=== PATIENT | male | born 1995 | race Caucasian/White ===

== ENCOUNTER 2019-05-12 12:08 | Emergency (ER) | payer OTHER ==
[2019-05-12 13:02] LABS: ABS Eosinophils 0.1 10^3/ul (0-0.6); ABS Lymphocytes 1.7 10^3/ul (1.0-4.8); ABS Monocytes 0.6 10^3/ul (0-0.8); ABS Neutrophils 7.6 10^3/ul (1.5-7.7); Eosinophil % 0.7 %; Hematocrit 43 % (42-52); Hemoglobin 14.5 g/dL (14.0-18.0); Lymphocyte % 16.9 %; Mean Corpuscular HGB Conc 34 g/dL (31-36); Mean Corpuscular Hemoglobin 30 pg (27-31); Mean Corpuscular Volume 88 fL (80-94); Mean Platelet Volume 8.8 fL (7.4-10.4); Platelet Count 254 10^3/uL (150-450); Red Blood Count 4.86 10^6 /uL (4.18-5.48); Red Cell Distribution Width 14 % (10-15); White Blood Count 10.1 10^3/uL (3.5-10.8)
[2019-05-12 13:09] LABS: ALT 26 U/L (7-52); AST 22 U/L (13-39); Albumin 4.5 g/dL (3.2-5.2); Albumin/Globulin Ratio 1.3 (1-3); Alkaline Phosphatase 123 U/L (34-104); Anion Gap 5 mmol/L (2-11); BUN/Creatinine Ratio 9.2 (8-20); Blood Urea Nitrogen 9 mg/dL (6-24); CO2 Carbon Dioxide 31 mmol/L (22-32); Calcium 9.8 mg/dL (8.6-10.3); Chloride 101 mmol/L (101-111); EGFR African American 115.7 (>60); EGFR Non-African American 95.6 (>60); Globulin 3.5 g/dL (2-4); Glucose 102 mg/dL (70-100); Potassium 4.2 mmol/L (3.5-5.0); Sodium 137 mmol/L (135-145)
--- NOTE | 2019-05-12 13:27 | ED ---
Complex/Multi-Sys Presentation - HPI Summary HPI Summary: Pt. is a 23 y.o male who presents to the ER for concern for change in behavior, difficulty finding words and confusion. Patient is a history of schizophrenia and currently is on Lamictal, Minipress, and Seroquel. He follows with the psychiatrist monthly. Patient states that he was concerned he may be having a seizure or stroke today. Patient states this morning he felt shaky and went to his father and told him he may be having a stroke or a seizure. Patient's mother states he was shaking his arms but never lost consciousness. Patient's mother has a history of seizures status post brain injury. Patient denies drug or alcohol use. Patient's father states patient has been acting bizarre over the last 2 weeks. Father notes he will be reaching and looking at things that are not there. Patient denies SI or HI. Symptoms are moderate in severity. No current modifying factors. - History Of Current Complaint Chief Complaint: EDNeurologicalDeficit Time Seen by Provider: 05/12/19 13:05 Hx Obtained From: Patient, Family/Camp[facility] - Allergies/Home Medications Allergies/Adverse Reactions: Allergies Allergy/AdvReac Type Severity Reaction Status Date / Time bee venom protein (honey bee) Allergy Anaphylatic Verified 05/12/19 12:24 Shock Penicillins Allergy Unknown Verified 05/12/19 12:25 Reaction Details Home Medications: Home Medications Lamotrigine ER (NF) 200 mg PO DAILY 05/12/19 [History Confirmed 05/12/19] Prazosin 1 mg CAP [Minipress 1 mg CAP] 2 mg PO BEDTIME 05/12/19 [History Confirmed 05/12/19] QUEtiapine TAB* [Seroquel 100 MG *] 200 mg PO BEDTIME 05/12/19 [History Confirmed 05/12/19] PMH/Surg Hx/FS Hx/Imm Hx Previously Healthy: Yes Infectious Disease History: No Infectious Disease History: Denies: Traveled Outside the [place] in Last 30 Days - Family History Known Family History: Positive: Non-Contributory - Social History Occupation: Unemployed Lives: With Family Review of Systems - ROS Summary Review of Systems Summary: Lamotrigine ER (NF) 200 mg PO DAILY 05/12/19 [History Confirmed 05/12/19] Prazosin 1 mg CAP [Minipress 1 mg CAP] 2 mg PO BEDTIME 05/12/19 [History Confirmed 05/12/19] QUEtiapine TAB* [Seroquel 100 MG *] 200 mg PO BEDTIME 05/12/19 [History Confirmed 05/12/19] Constitutional: Negative Negative: Fever, Chills Eyes: Negative ENT: Negative Cardiovascular: Negative Respiratory: Negative Gastrointestinal: Negative Genitourinary: Negative Musculoskeletal: Negative Skin: Negative Neurological/Mental Status: Other - Questionable seizure like activity, difficulty finding words,confused. All Other Systems Reviewed And Are Negative: Yes Physical Exam Triage Information Reviewed: Yes Vital Signs On Initial Exam: Initial Vitals Temp Pulse Resp BP Pulse Ox 97.7 F 91 20 134/81 97 05/12/19 12:14 05/12/19 12:14 05/12/19 12:14 05/12/19 12:14 05/12/19 12:14 Vital Signs Reviewed: Yes Appearance: Positive: Well-Appearing - Pt. sitting up in bed in NAD. Awake, alert and O x 3. Father present. Answers questions appropriately. Skin: Positive: Warm, Dry Head/Face: Positive: Normal Head/Face Inspection Eyes: Positive: Normal, EOMI ENT: Positive: Pharynx normal, TMs normal Neck: Positive: Supple Respiratory/Lung Sounds: Positive: Clear to Auscultation, Breath Sounds Present Cardiovascular: Positive: Normal, RRR Musculoskeletal: Positive: Normal, Strength/ROM Intact Neurological: Positive: Normal, Alert, Oriented to Person Place, Time, CN Intact II-III, Speech Normal - Slow responses occassionaly. Negative: Disoriented, Slurred Speech, Dysphagia, Pronator Drift Present Psychiatric: Positive: Affect/Mood Appropriate - Leon Coma Scale Best Eye Response: 4 - Spontaneous Best Motor Response: 6 - Obeys Commands Best Verbal Response: 5 - Oriented Coma Scale Total: 15 Procedures - Sedation Patient Received Moderate/Deep Sedation with Procedure: No Diagnostics - Vital Signs Vital Signs Temp Pulse Resp BP Pulse Ox 05/12/19 12:14 97.7 F 91 20 134/81 97 - Laboratory Lab Results: Lab Results 05/12/19 05/12/19 Range/Units 12:38 12:38 WBC 10.1 (3.5-10.8) 10^3/uL RBC 4.86 (4.18-5.48) 10^6 /uL Hgb 14.5 (14.0-18.0) g/dL Hct 43 (42-52) % MCV 88 (80-94) fL MCH 30 (27-31) pg MCHC 34 (31-36) g/dL RDW 14 (10-15) % Plt Count 254 (150-450) 10^3/uL MPV 8.8 (7.4-10.4) fL Neut % (Auto) 75.6 % Lymph % (Auto) 16.9 % Bertie % (Auto) 6.4 % Eos % (Auto) 0.7 % Baso % (Auto) 0.4 % Absolute Neuts (auto) 7.6 (1.5-7.7) 10^3/ul Absolute Lymphs (auto) 1.7 (1.0-4.8) 10^3/ul Absolute Monos (auto) 0.6 (0-0.8) 10^3/ul Absolute Eos (auto) 0.1 (0-0.6) 10^3/ul Absolute Basos (auto) 0.0 (0-0.2) 10^3/ul Absolute Nucleated RBC 0.0 10^3/ul Nucleated RBC % 0.0 Sodium 137 (135-145) mmol/L Potassium 4.2 (3.5-5.0) mmol/L Chloride 101 (101-111) mmol/L Carbon Dioxide 31 (22-32) mmol/L Anion Gap 5 (2-11) mmol/L BUN 9 (6-24) mg/dL Creatinine 0.98 (0.67-1.17) mg/dL Est GFR ( Amer) 115.7 (>60) Est GFR (Non-Af Amer) 95.6 (>60) BUN/Creatinine Ratio 9.2 (8-20) Glucose 102 H (70-100) mg/dL Calcium 9.8 (8.6-10.3) mg/dL Total Bilirubin 1.00 (0.2-1.0) mg/dL AST 22 (13-39) U/L ALT 26 (7-52) U/L Alkaline Phosphatase 123 H (34-104) U/L Total Protein 8.0 (6.4-8.9) g/dL Albumin 4.5 (3.2-5.2) g/dL Globulin 3.5 (2-4) g/dL Albumin/Globulin Ratio 1.3 (1-3) TSH Pending Serum Alcohol Pending Result Diagrams: 05/12/19 12:38 05/12/19 12:38 Lab Statement: Any lab studies that have been ordered have been reviewed, and results considered in the medical decision making process. Complex Multi-Symp Course/Dx Course Of Treatment: Patient with slow response and trouble finding words. He has no neurological deficits. Brain CT obtained to rule out signs of ischemia or mass. Brain CT negative per radiology. Blood work unremarkable. We'll obtain mental health evaluation. Pt. moved to [facility] for [facility]. Pt. will be signed out to BHAKTI Pope for disposition. - Diagnoses Provider Diagnoses: Schizophrenia Discharge ED - Sign-Out/Discharge Documenting (check all that apply): Sign-Out Patient Signing out patient TO: Сергей Ellis - Discharge Plan Referrals: Josh Davila DO [Primary Care Provider] -
[2019-05-12 13:45] LABS: Alcohol < 10 mg/dL (<10)
[2019-05-12 14:00] LABS: TSH (Thyroid Stimulating Horm) 1.32 mcIU/mL (0.34-5.60)
--- NOTE | 2019-05-12 17:29 | ED ---
Progress - Progress Note Progress Note: Pt. is a 23 y.o male who presents to the ER for concern for change in behavior, difficulty finding words and confusion. Patient is a history of schizophrenia and currently is on Lamictal, Minipress, and Seroquel. He follows with the psychiatrist monthly. Patient states that he was concerned he may be having a seizure or stroke today. Patient states this morning he felt shaky and went to his father and told him he may be having a stroke or a seizure. Patient's mother states he was shaking his arms but never lost consciousness. Patient's mother has a history of seizures status post brain injury. Patient denies drug or alcohol use. Patient's father states patient has been acting bizarre over the last 2 weeks. Father notes he will be reaching and looking at things that are not there. Patient denies SI or HI. Symptoms are moderate in severity. No current modifying factors. Pt signed out to me from Landon Herzog at 1730. Psychiatry believed patient was fit for discharge with outpatient follow-up. Patient diagnosed with bipolar disorder, schizophrenia, psychosis. Patient discharged home, condition stable Course/Dx - Course Course Of Treatment: Patient with slow response and trouble finding words. He has no neurological deficits. Brain CT obtained to rule out signs of ischemia or mass. Brain CT negative per radiology. Blood work unremarkable. We'll obtain mental health evaluation. - Diagnoses Provider Diagnoses: Schizophrenia Discharge ED - Sign-Out/Discharge Documenting (check all that apply): Patient Departure - Discharge Plan Condition: Stable Disposition: HOME Patient Education Materials: Bipolar Disorder (ED), Schizophrenia (ED), Psychotic Disorder (ED) Referrals: Josh Davila DO [Primary Care Provider] - - Billing Disposition and Condition Condition: STABLE Disposition: Home
[2019-05-12 18:01] VITALS: BP 126/76
== END 2019-05-12 18:13 | disposition home or self-care (01) ==
LOC: ED 12:08
DX: F20.9 Schizophrenia, unspecified (principal); Z79.899 Other long term (current) drug therapy; Z88.0 Allergy status to penicillin
CPT/HCPCS: 36415; 70450; 80053; 80320; 84443; 85025; 99284; G0480

== ENCOUNTER 2019-06-17 10:09 | Inpatient (IN) | payer OTHER ==
[2019-06-17 10:45] LABS: ABS Eosinophils 0.1 10^3/ul (0-0.6); ABS Lymphocytes 1.6 10^3/ul (1.0-4.8); ABS Monocytes 0.6 10^3/ul (0-0.8); ABS Neutrophils 8.6 10^3/ul (1.5-7.7); Eosinophil % 0.7 %; Hematocrit 44 % (42-52); Hemoglobin 14.7 g/dL (14.0-18.0); Lymphocyte % 14.3 %; Mean Corpuscular HGB Conc 34 g/dL (31-36); Mean Corpuscular Hemoglobin 30 pg (27-31); Mean Corpuscular Volume 87 fL (80-94); Mean Platelet Volume 8.8 fL (7.4-10.4); Platelet Count 257 10^3/uL (150-450); Red Blood Count 4.98 10^6 /uL (4.18-5.48); Red Cell Distribution Width 14 % (10-15); White Blood Count 10.9 10^3/uL (3.5-10.8)
[2019-06-17 11:01] LABS: ALT 16 U/L (7-52); AST 16 U/L (13-39); Albumin/Globulin Ratio 1.3 (1-3); Alkaline Phosphatase 130 U/L (34-104); Anion Gap 3 mmol/L (2-11); BUN/Creatinine Ratio 9.1 (8-20); Blood Urea Nitrogen 9 mg/dL (6-24); CO2 Carbon Dioxide 34 mmol/L (22-32); Calcium 9.8 mg/dL (8.6-10.3); Chloride 100 mmol/L (101-111); EGFR African American 114.4 (>60); EGFR Non-African American 94.5 (>60); Globulin 3.1 g/dL (2-4); Glucose 102 mg/dL (70-100); Potassium 3.9 mmol/L (3.5-5.0); Sodium 137 mmol/L (135-145); Total Protein 7.1 g/dL (6.4-8.9)
--- NOTE | 2019-06-17 11:02 | ED ---
Substance Abuse/Use - HPI Summary HPI Summary: This patient is a 23-year-old male with a history of schizophrenia presenting to the ED for change in behavior per father. Patient has been confused, not speaking and not responding to questions, etc per father since after he took his 100mg dose of seroquel this AM. He does see a psychiatrist every month. Her his father, he has been acting out more frequently similar to his diagnosis of schizophrenia in 2014. Patient was seen in the ED approximately 5 weeks ago for similar symptoms. He had difficulty finding words and confusion. He did have a change in his behavior per his father and would stop speaking at times. He has been acting bizarrely over the past several months, however this has been worsening. Denies any SI or HI. Lamictal, Minipress, and Seroquel. - History Of Current Complaint Chief Complaint: EDPsychosocial Stated Complaint: MENTAL HEALTH Time Seen by Provider: 06/17/19 10:13 Hx Obtained From: Patient Ingestion History: Type/Name Of Drug - seroquil Overdose Characteristics: Oral Timing Of Abuse: Daily Severity Initially: Moderate Severity Currently: Moderate Aggravating Factor(s): Nothing Alleviating Factor(s): Nothing Associated Signs And Symptoms: Confused, Hallucinating, Social Withdrawal, Altered Mental Status - Risk Factor(s) Completed Suicide Risk Factors: Male, White [place] - Allergies/Home Medications Allergies/Adverse Reactions: Allergies Allergy/AdvReac Type Severity Reaction Status Date / Time bee venom protein (honey bee) Allergy Anaphylatic Verified 05/12/19 12:24 Shock Penicillins Allergy Unknown Verified 05/12/19 12:25 Reaction Details Home Medications: Home Medications Lamotrigine ER (NF) 200 mg PO DAILY 05/12/19 [History Confirmed 06/17/19] Prazosin 1 mg CAP [Minipress 1 mg CAP] 2 mg PO BEDTIME 05/12/19 [History Confirmed 06/17/19] QUEtiapine TAB* [Seroquel 100 MG *] 200 mg PO BEDTIME 05/12/19 [History Confirmed 06/17/19] Quetiapine Fumarate [Seroquel 50 mg tab] 50 mg PO .Q AFTERNOON 06/17/19 [ History Confirmed 06/17/19] PMH/Surg Hx/FS Hx/Imm Hx Previously Healthy: Yes Psychiatric History: Reports: Hx Eating Disorder, Hx Depression, Hx Post Traumatic Stress Disorder, Hx Schizophrenia, Hx Bipolar Disorder Denies: Hx Suicide Attempt - Immunization History Hx Pertussis Vaccination: No Immunizations Up to Date: Yes Infectious Disease History: Unable to Obtain/Confirm Infectious Disease History: Denies: Traveled Outside the [place] in Last 30 Days - Family History Known Family History: Positive: Non-Contributory - Social History Occupation: Unemployed Lives: With Family Alcohol Use: None Hx Substance Use: No Substance Use Type: Reports: None Hx Tobacco Use: No Smoking Status (MU): Never Smoked Tobacco Review of Systems - ROS Summary Review of Systems Summary: HPI limited Negative: Fever, Chills, Fatigue, Skin Diaphoresis Negative: Palpitations, Chest Pain Negative: Shortness Of Breath, Cough Genitourinary: Negative Positive: no symptoms reported, see HPI Negative: Arthralgia, Myalgia Skin: Negative Neurological/Mental Status: Negative Positive: Other - altered All Other Systems Reviewed And Are Negative: Yes Physical Exam Triage Information Reviewed: Yes Vital Signs On Initial Exam: Initial Vitals Temp Pulse Resp BP Pulse Ox 98.9 F 90 16 146/99 97 06/17/19 10:14 06/17/19 10:14 06/17/19 10:14 06/17/19 10:14 06/17/19 10:14 Vital Signs Reviewed: Yes Appearance: Positive: Well-Appearing, Well-Nourished Skin: Positive: Warm, Skin Color Reflects Adequate Perfusion Head/Face: Positive: Normal Head/Face Inspection Eyes: Positive: EOMI, THAIS, Conjunctiva Clear Neck: Positive: Supple, No Lymphadenopathy Respiratory/Lung Sounds: Positive: Clear to Auscultation, Breath Sounds Present Cardiovascular: Positive: RRR, Pulses are Symmetrical in both Upper and Lower Extremities Musculoskeletal: Positive: Normal, Strength/ROM Intact Neurological: Positive: Disoriented, Facial Symmetry. Negative: Alert, Oriented to Person Place, Time, CN Intact II-III, Cerebellar Dysfunction, Facial Droop Psychiatric: Positive: Affect/Mood Appropriate AVPU Assessment: Alert Procedures - Sedation Patient Received Moderate/Deep Sedation with Procedure: No Diagnostics - Vital Signs Vital Signs Temp Pulse Resp BP Pulse Ox 06/17/19 10:14 98.9 F 90 16 146/99 97 - Laboratory Result Diagrams: 06/17/19 10:30 06/17/19 10:30 Lab Statement: Any lab studies that have been ordered have been reviewed, and results considered in the medical decision making process. Course/Dx - Course Course Of Treatment: During his course of treatment, the patient is evaluated for bizarre behavior which has been worsening over the past few days, worse this morning per father. Patient had an evaluation last month and was discharged back home. He states he took 100 mg Seroquel as this was just increased and per his father, he began to have more bizarre behavior. Father states he feels this medication increase could be the issue. Arrival into the ED, the patient is mumbling, appears to have difficulty with word finding, staring off into the distance, EDC. Poison control was called, suggested 25 mg IV Benadryl. Mental health evaluation requested. Will admit for schizophrenia per Dr. Michaels. - Diagnoses Differential Diagnosis/HQI/PQRI: Positive: Acute Psychosis, Anxiety Provider Diagnoses: Schizophrenia Discharge ED - Sign-Out/Discharge Documenting (check all that apply): Patient Departure - Discharge Plan Condition: Good Disposition: ADMITTED TO [facility] - Billing Disposition and Condition Condition: GOOD Disposition: Admitted to [facility] - Attestation Statements Provider Attestation: I was available for consult. This patient was seen by the KAREEM. The patient was not presented to, seen by, or examined by me. Art Esquivel MD
[2019-06-17 11:10] LABS: Acetaminophen < 15 mcg/mL; Alcohol < 10 mg/dL (<10); Salicylate < 2.50 mg/dL (<30)
[2019-06-17] MEDS ORDERED: diPHENhydraMINE IV* 50 MG/ML 1 ml VIAL (BENADRYL) IV ONE (11:28)
[2019-06-17 12:33] LABS: Urine Appearance Turbid; Urine Bilirubin Negative (Negative); Urine Blood Negative (Negative); Urine Color Yellow; Urine Glucose Negative (Negative); Urine Ketones Negative (Negative); Urine Nitrite Negative (Negative); Urine Protein Negative (Negative); Urine Specific Gravity 1.009 (1.010-1.030); Urine Urobilinogen Negative (Negative)
[2019-06-17 12:49] LABS: Urine Benzodiazepine Screen None Detected (None Detect); Urine Opiates Screen None Detected (None Detect)
[2019-06-17] MEDS ORDERED: Al Hydrox/Mg Hydrox/Simet LIQ* 30 ML UDC PO PRN (18:22)
[2019-06-17] MEDS ORDERED: QUEtiapine TAB* 100 MG PO SCH (21:00)
[2019-06-18] MEDS: lamoTRIgine TAB(*) 100 MG PO SCH ×2 (13:24→13:41)
[2019-06-18] MEDS: Vitamin THERAPEUTIC TAB PO SCH ×2 (13:24→13:42)
[2019-06-18] MEDS: QUEtiapine TAB* 25 MG PO SCH ×2 (13:25→13:42)
[2019-06-18] MEDS: LORazepam TAB(*) 1 MG PO ONE ×2 (13:25→13:41)
[2019-06-18] MEDS ORDERED: Lorazepam PYXIS KEY PRN (13:38)
[2019-06-18] MEDS ORDERED: LORazepam INJ* 2 MG/ML 1 ML VIAL IM ONE (13:38)
[2019-06-18] MEDS ORDERED: Lorazepam PYXIS KEY ONE (13:40)
[2019-06-18] MEDS ORDERED: LORazepam INJ* 2 MG/ML 1 ML VIAL ONE (13:41)
--- NOTE | 2019-06-18 17:52 | HP ---
HISTORY AND PHYSICAL: DATE OF ADMISSION: 06/17/19 PROVIDER: Brunilda Yañez NP, Psychiatry. SUPERVISING PHYSICIAN: John Michaels MD.* (DICTATED BY BRUNILDA YAÑEZ NP) JUSTIFICATION FOR ADMISSION: The patient is in need of 24-hour supervision and care secondary to gross disorganization. CHIEF COMPLAINT: Cannot be obtained due to mutism. HISTORY OF PRESENT ILLNESS: The patient is a 23-year-old white male with a history of schizophrenia, who arrives brought in by his father and is here on a blank status after his father noticed that he was having trouble finding words. He was behaving strangely and was "out of it." Daniel has not been able to engage in any conversation. I have not been able to be in contact with his father as of 4:30 on Friday afternoon. The story as can be gathered from the evaluation and the emergency department documents indicates that Daniel has been diagnosed with schizophrenia in the past. He sees a psychiatrist every month. It is not known who the psychiatrist is. There was a recent medication change, I do not know what that medication change was, and it may have resulted in Daniel's disorganized behavior. It should be noted also that on 05/12/19, Daniel was brought to the emergency department but was not admitted. Daniel's behavior right now consists of his not speaking, pacing in an agitated fashion, not responding to questions or commands, having disorganized behaviors related to others around him. At this time, he appears to be catatonic and is unable to engage in a meaningful conversation. He took an hour long shower today and would not have gotten out of the shower except that he was prompted to do so and the water was turned off in his room due to that continuous behavior. Clothing was difficult to find for him but he eventually did get dressed and began walking around the milieu in an aimless fashion. PAST PSYCHIATRIC HISTORY: Diaganosed with schizophrenia in 2014. Otherwise unknown other than that he has been prescribed Seroquel 200 at bedtime and Seroquel 50 at noon. He is also taking Lamictal 200 and prazosin 2 mg at bedtime. PRIOR MEDICAL HISTORY: Unavailable at this time. FAMILY HISTORY: Unavailable at this time. SUBSTANCE ABUSE HISTORY: Unavailable at this time. SOCIAL HISTORY: Unavailable at this time. REVIEW OF SYSTEMS: The patient appears to be fatigued. There is no noted shortness of breath, heat or cold intolerance. He is not complaining of pain. There is no evidence of neurological symptoms. PHYSICAL EXAMINATION APPEARANCE: Well appearing, well nourished. VITAL SIGNS: On 06/18/19 at 0800, temperature is 98.5, pulse 93, respirations 16, O2 sat on room air 93%, blood pressure 146/72. HEENT: Head and face: Normal head and face inspection. Eyes: EOMI. THAIS. Conjunctivae clear. NECK: Supple. No lymphadenopathy. RESPIRATORY: Lung sounds clear to auscultation. Breath sounds present. CARDIOVASCULAR: RRR. Pulses are symmetrical in both upper and lower extremities. MUSCULOSKELETAL: Normal strength, range of motion intact. NEUROLOGICAL: Disoriented, facial symmetry, not alert, not oriented to person, place, or time. No cerebellar dysfunction. No facial droop. SKIN: Warm. Skin color reflects adequate perfusion. LABORATORY DATA: Most data are within normal limits. Exceptions include white blood cells high at 10.9, absolute neutrophils high at 8.6, chloride low 100s, carbon dioxide high 34, glucose high 102. Alkaline phosphatase high at 130. Urine specific gravity is low at 1.009. Toxicology screen is free from all drugs of abuse. MENTAL STATUS EXAMINATION: Daniel is an average height obese white male with disheveled dark hair. He does not sit still. He walks constantly around his room and then outside of his room. His eye contact is poor. He is behaving in a peculiar fashion. He is not calm. He seems to be cooperative enough to get along with people but it is not clear to me that he can make his needs known. His speech is limited to 1 syllable yes or no. He appears to be dysthymic. His affect is restricted. Thought processes appear to be racing. He is talking to himself constantly, mumbling about a variety of things that are not easy to make sense of. His thought content is not clear if he is not speaking. He has not demonstrated any violent tendencies. I do not know if he is homicidal or suicidal. He seems to be responding to internal stimuli. It is not clear whether he is having auditory or visual hallucinations. His insight is poor. His judgment is poor. He is alert. He is awake. He does not seem to be oriented to the situation that he is in at all. DIAGNOSIS: Schizophrenia. IMPRESSION: Daniel is a 23-year-old man who is acutely ill from symptoms of schizophrenia, who was brought to the emergency department by his father after his father noticed he was having symptoms of not being able to find words and behaving strangely. PLAN: The patient is admitted to the adult behavioral health unit and placed on q.15-minute checks for his own safety. The patient is encouraged to participate in supportive milieu, individual and group therapies. Estimated length of stay is 5 to 7 days. We will titrate medications to efficacy including using lorazepam 2 mg to reduce what appears to be a catatonic state and increase Seroquel to 400 as 200 would not be sufficient to stop a psychotic episode. We will monitor for mood and thought content. Discharge planning will include family involvement and outpatient providers. BRUNILDA YAÑEZ, ALONDRA [id number]/[facility] #: [id number] JESS
[2019-06-18] MEDS: QUEtiapine TAB* 100 MG PO SCH (21:16)
[2019-06-19] MEDS: Vitamin THERAPEUTIC TAB PO SCH (10:48)
[2019-06-19] MEDS: lamoTRIgine TAB(*) 100 MG PO SCH (10:48)
[2019-06-19] MEDS: QUEtiapine TAB* 25 MG PO SCH (12:50)
--- NOTE | 2019-06-19 14:44 | PN ---
Subjective - Subjective Date of Service: 06/19/19 Service Type: 05055 Hosp care 15 min low complexity Subjective: Hilda is seen in weekend coverage for SILVIA, Brunilda Yañez. The patient is found in his room where he appears unkempt and malodorous, dressed only in patient scrub bottoms with no top. He is overtly responding to unseen stimuli, mouthing words to no one. There are towels and personal affects strewn on the floor throughout his room and bathroom. He seems slightly irritable and eager to keep our meeting brief. He is taking his medications as directed and denies SI or HI. Objective - General Observations Appearance: Disheveled, Malodorous Appears Stated Age: Yes Stature: Overweight Posture: WNL Eye Contact: Avoidant Behavior/Activity: Peculiar - Interaction Observations Attitude Towards Examiner: Evasive Stated Mood: Irritable Affect: Blunted Speech Pattern/Tone: Delayed Thought Process: Disorganized Thought Content: Paranoid Thought Process: Lethality: Paranoid Ideation Hallucination Type: Auditory, Visual Delusion Type: Persecution - Cognitive Function Orientation: A&O x 4 Level of Consciousness: Awake Cognition: WNL Estimated Intelligence: Normal Insight: WNL Judgment Within Normal Limits: Yes - Medication Compliance Cooperative with Inpatient Medication Regimen: Yes - Group Participation Participates in Group Activities: No Assessment - Assessment Merits Inpatient Hospitalization: For Immediate Safety, For Stabilization Inpatient DSM-V Dx: F20.9 Clinical Impression: 23 y.o. single, white male with a history of schizophrenia and autism spectrum disorder brought to the hospital by his father from [facility] due to progressively disorganized, psychotic behavior and inability to care for himself. BSU: Problem List - Patient Problems (1) Schizophrenia Current Visit: Yes Status: Acute Priority: High Code(s): F20.9 - SCHIZOPHRENIA, UNSPECIFIED SNOMED Code(s): 02987816 Plan - Plan Treatment Plan: Name: HILDA MARTINO Birthdate: 1995 [id number] Patient receiving outpatient regimen of lamotrigine, prazosin and quetiapine. Quetiapine dose increased to 50mg in the morning and 400mg in the evening. He remains psychotic and in need of inpatient level treatment. Continued Medication Management: Different Medication Medications: Current Medications Acetaminophen (Tylenol Tab*) 650 mg PO Q4H PRN PRN Reason: PAIN or TEMP > 101 F Al Hydrox/Mg Hydrox/Simethicone (Maalox Plus*) 30 ml PO Q4H PRN PRN Reason: INDIGESTION Lamotrigine (Lamictal Tab(*)) 200 mg PO DAILY [facility] Last Admin: 06/19/19 10:48 Dose: 200 mg Lorazepam (Ativan Tab(*)) 2 mg PO Q6H PRN PRN Reason: AGITATION Miscellaneous (Ativan Pyxis Vickers) 1 ea N/A .ATIVAN IV VICKERS PRN PRN Reason: PYXIS VICKERS Multivitamins (Theragran Tab*) 1 tab PO DAILY [facility] Last Admin: 06/19/19 10:48 Dose: Not Given Prazosin HCl (Minipress 1 Mg Cap) 2 mg PO BEDTIME [facility] Last Admin: 06/18/19 21:16 Dose: 2 mg Quetiapine Fumarate (Seroquel Tab*) 50 mg PO DAILY@1200 [facility] Last Admin: 06/19/19 12:50 Dose: 50 mg Quetiapine Fumarate (Seroquel Tab*) 400 mg PO BEDTIME [facility] Last Admin: 06/18/19 21:16 Dose: 400 mg - Discharge Plan Discharge Plan: Inpatient Hospitalization Lab Results - Lab Results Lab Results: 06/17/19 06/17/19 06/17/19 10:30 10:30 10:30 WBC 10.9 H RBC 4.98 Hgb 14.7 Hct 44 MCV 87 MCH 30 MCHC 34 RDW 14 Plt Count 257 MPV 8.8 Neut % (Auto) 78.8 Lymph % (Auto) 14.3 Milam % (Auto) 5.8 Eos % (Auto) 0.7 Baso % (Auto) 0.4 Absolute Neuts (auto) 8.6 H Absolute Lymphs (auto) 1.6 Absolute Monos (auto) 0.6 Absolute Eos (auto) 0.1 Absolute Basos (auto) 0.0 Absolute Nucleated RBC 0.0 Nucleated RBC % 0.0 Sodium 137 Potassium 3.9 Chloride 100 L Carbon Dioxide 34 H Anion Gap 3 BUN 9 Creatinine 0.99 Est GFR ( Amer) 114.4 Est GFR (Non-Af Amer) 94.5 BUN/Creatinine Ratio 9.1 Glucose 102 H Lactic Acid 1.1 Calcium 9.8 Total Bilirubin 0.50 AST 16 ALT 16 Alkaline Phosphatase 130 H Total Protein 7.1 Albumin 4.0 Globulin 3.1 Albumin/Globulin Ratio 1.3 Urine Color Urine Appearance Urine pH Ur Specific Mcbain Urine Protein Urine Ketones Urine Blood Urine Nitrate Urine Bilirubin Urine Urobilinogen Ur Leukocyte Esterase Urine Glucose Salicylates < 2.50 Urine Opiates Screen Acetaminophen < 15 Ur Barbiturates Screen Ur Phencyclidine Scrn Ur Amphetamines Screen U Benzodiazepines Scrn Urine Cocaine Screen U Cannabinoids Screen Serum Alcohol < 10 06/17/19 06/17/19 11:55 11:55 WBC RBC Hgb Hct MCV MCH MCHC RDW Plt Count MPV Neut % (Auto) Lymph % (Auto) Milam % (Auto) Eos % (Auto) Baso % (Auto) Absolute Neuts (auto) Absolute Lymphs (auto) Absolute Monos (auto) Absolute Eos (auto) Absolute Basos (auto) Absolute Nucleated RBC Nucleated RBC % Sodium Potassium Chloride Carbon Dioxide Anion Gap BUN Creatinine Est GFR ( Amer) Est GFR (Non-Af Amer) BUN/Creatinine Ratio Glucose Lactic Acid Calcium Total Bilirubin AST ALT Alkaline Phosphatase Total Protein Albumin Globulin Albumin/Globulin Ratio Urine Color Yellow Urine Appearance Turbid Urine pH 8.0 Ur Specific Mcbain 1.009 L Urine Protein Negative Urine Ketones Negative Urine Blood Negative Urine Nitrate Negative Urine Bilirubin Negative Urine Urobilinogen Negative Ur Leukocyte Esterase Negative Urine Glucose Negative Salicylates Urine Opiates Screen None detected Acetaminophen Ur Barbiturates Screen None detected Ur Phencyclidine Scrn None detected Ur Amphetamines Screen None detected U Benzodiazepines Scrn None detected Urine Cocaine Screen None detected U Cannabinoids Screen None detected Serum Alcohol
[2019-06-19] MEDS: Acetaminophen TAB* 325 MG PO PRN (15:12)
[2019-06-19] MEDS: LORazepam TAB(*) 1 MG PO PRN (15:42)
[2019-06-19] MEDS: QUEtiapine TAB* 100 MG PO SCH (21:55)
[2019-06-20] MEDS: Vitamin THERAPEUTIC TAB PO SCH (09:31)
[2019-06-20] MEDS: lamoTRIgine TAB(*) 100 MG PO SCH (09:31)
[2019-06-20] MEDS: QUEtiapine TAB* 25 MG PO SCH (13:09)
[2019-06-20] MEDS: QUEtiapine TAB* 100 MG PO SCH (22:15)
[2019-06-21 08:58] LABS: HDL Cholesterol 39.7 mg/dL
[2019-06-21] MEDS: Vitamin THERAPEUTIC TAB PO SCH (10:03)
[2019-06-21] MEDS: lamoTRIgine TAB(*) 100 MG PO SCH (10:03)
[2019-06-21] MEDS: QUEtiapine TAB* 25 MG PO SCH (13:27)
--- NOTE | 2019-06-21 20:01 | PN ---
Subjective - Subjective Date of Service: 06/21/19 Service Type: 44221 Hosp care 15 min low complexity Subjective: Hilda appears to be improving. His speech is more fluid and he can answer questions with only a small latency. He has been seen listening to music in the milieu. In his room, he is dressed and able to answer how he is feeling and what has improved for him: being able to eat more easily is one thing he mentions. He still appears to be disorganized. We are struggling with lack of information. He is responding to internal stimuli. Objective - General Observations Appearance: Disheveled Appears Stated Age: Yes Stature: Overweight Posture: Slumped Eye Contact: Avoidant Behavior/Activity: Peculiar - Interaction Observations Attitude Towards Examiner: Anxious, Confused Stated Mood: Dysphoric Affect: Flat Speech Pattern/Tone: Clear, Normal Volume, Delayed Thought Process: Disorganized Perception: WNL Hallucination Type: Auditory - Cognitive Function Orientation: A&O x 4 Level of Consciousness: Awake, Alert, Appropriate Cognition: Impaired Cognition, Impaired Attention/Concentration Judgment Within Normal Limits: No Ability to Make Reasonable Decisions: Serverely Impaired - Medication Compliance Cooperative with Inpatient Medication Regimen: Yes - Group Participation Participates in Group Activities: No Assessment - Assessment Merits Inpatient Hospitalization: For Immediate Safety Inpatient DSM-V Dx: F20.9 Clinical Impression: 23 y.o. single, white male with a history of schizophrenia and autism spectrum disorder brought to the hospital by his father from [facility] due to progressively disorganized, psychotic behavior and inability to care for himself. Plan - Plan Treatment Plan: Name: HILDA MARTINO Birthdate: 1995 [id number] Patient receiving outpatient regimen of lamotrigine, prazosin and quetiapine. Quetiapine dose increased to 50mg in the morning and 400mg in the evening. He remains psychotic and in need of inpatient level treatment. Medications: Current Medications Acetaminophen (Tylenol Tab*) 650 mg PO Q4H PRN PRN Reason: PAIN or TEMP > 101 F Last Admin: 06/19/19 15:12 Dose: 650 mg Al Hydrox/Mg Hydrox/Simethicone (Maalox Plus*) 30 ml PO Q4H PRN PRN Reason: INDIGESTION Lamotrigine (Lamictal Tab(*)) 200 mg PO DAILY [facility] Last Admin: 06/21/19 10:03 Dose: 200 mg Lorazepam (Ativan Tab(*)) 2 mg PO Q6H PRN PRN Reason: AGITATION Last Admin: 06/19/19 15:42 Dose: 2 mg Miscellaneous (Ativan Pyxis Vickers) 1 ea N/A .ATIVAN IV VICKERS PRN PRN Reason: PYXIS VICKERS Multivitamins (Theragran Tab*) 1 tab PO DAILY [facility] Last Admin: 06/21/19 10:03 Dose: 1 tab Prazosin HCl (Minipress 1 Mg Cap) 2 mg PO BEDTIME [facility] Last Admin: 06/20/19 22:15 Dose: 2 mg Quetiapine Fumarate (Seroquel Tab*) 50 mg PO DAILY@1200 [facility] Last Admin: 06/21/19 13:27 Dose: 50 mg Quetiapine Fumarate (Seroquel Tab*) 400 mg PO BEDTIME [facility] Last Admin: 06/20/19 22:15 Dose: 400 mg - Discharge Plan Discharge Plan: Outpatient Follow Up
[2019-06-21] MEDS: Acetaminophen TAB* 325 MG PO PRN (20:03)
[2019-06-21] MEDS: QUEtiapine TAB* 100 MG PO SCH (20:04)
[2019-06-22] MEDS: QUEtiapine TAB* 25 MG PO SCH (12:28)
[2019-06-22] MEDS: lamoTRIgine TAB(*) 100 MG PO SCH (12:29)
[2019-06-22] MEDS: Vitamin THERAPEUTIC TAB PO SCH (12:35)
--- NOTE | 2019-06-22 20:02 | PN ---
Subjective - Subjective Date of Service: 06/22/19 Service Type: 20809 Hosp care 15 min low complexity Subjective: Rivas's speaking is more fluid than it has been before. Nevertheless, he still interrupts himself to continue responding to internal stimuli. There is collateral that he is generally talkative and likes to tell stories. We are certainly far from that baseline. Objective - General Observations Appearance: Disheveled Appears Stated Age: Yes Stature: Overweight Posture: Slumped Eye Contact: Avoidant Behavior/Activity: Slowed, Peculiar - Interaction Observations Attitude Towards Examiner: Cooperative Stated Mood: Dysphoric Affect: Flat Speech Pattern/Tone: Clear, Rambling Thought Process: Coherent, [place] Thought Content: Preoccupation/Ruminations Hallucination Type: Auditory Delusion Type: Denies - Cognitive Function Orientation: A&O x 4 Level of Consciousness: Awake, Alert Cognition: Impaired Cognition, Impaired Attention/Concentration Insight: WNL Judgment Within Normal Limits: No Ability to Make Reasonable Decisions: Serverely Impaired - Medication Compliance Cooperative with Inpatient Medication Regimen: Yes - Group Participation Participates in Group Activities: No Assessment - Assessment Merits Inpatient Hospitalization: For Immediate Safety Inpatient DSM-V Dx: F20.9 Clinical Impression: 23 y.o. single, white male with a history of schizophrenia and autism spectrum disorder brought to the hospital by his father from [facility] due to progressively disorganized, psychotic behavior and inability to care for himself. He has improved over the past days to become more verbal and more apparently fluid in thought. Plan - Plan Treatment Plan: Name: HILDA MARTINO Birthdate: 1995 [id number] Patient receiving outpatient regimen of lamotrigine, prazosin and quetiapine. Quetiapine dose increased to 50mg in the morning and 400mg in the evening. He remains psychotic and in need of inpatient level treatment. Increase Seroquel dose to 600 mg. Continued Medication Management: Different Medication Medications: Current Medications Acetaminophen (Tylenol Tab*) 650 mg PO Q4H PRN PRN Reason: PAIN or TEMP > 101 F Last Admin: 06/21/19 20:03 Dose: 650 mg Al Hydrox/Mg Hydrox/Simethicone (Maalox Plus*) 30 ml PO Q4H PRN PRN Reason: INDIGESTION Lamotrigine (Lamictal Tab(*)) 200 mg PO DAILY [facility] Last Admin: 06/22/19 12:29 Dose: 200 mg Lorazepam (Ativan Tab(*)) 2 mg PO Q6H PRN PRN Reason: AGITATION Last Admin: 06/19/19 15:42 Dose: 2 mg Miscellaneous (Ativan Pyxis Vickers) 1 ea N/A .ATIVAN IV VICKERS PRN PRN Reason: PYXIS VICKERS Multivitamins (Theragran Tab*) 1 tab PO DAILY [facility] Last Admin: 06/22/19 12:35 Dose: Not Given Prazosin HCl (Minipress 1 Mg Cap) 2 mg PO BEDTIME [facility] Last Admin: 06/21/19 20:04 Dose: 2 mg Quetiapine Fumarate (Seroquel Tab*) 50 mg PO DAILY@1200 [facility] Last Admin: 06/22/19 12:28 Dose: 50 mg Quetiapine Fumarate (Seroquel Tab*) 600 mg PO BEDTIME [facility] - Discharge Plan Discharge Plan: Outpatient Follow Up
[2019-06-22] MEDS ORDERED: QUEtiapine TAB* 300 MG PO SCH (21:00)
[2019-06-23] MEDS: Acetaminophen TAB* 325 MG PO PRN ×2 (09:06→21:20)
[2019-06-23] MEDS: lamoTRIgine TAB(*) 100 MG PO SCH (09:06)
[2019-06-23] MEDS: Vitamin THERAPEUTIC TAB PO SCH (09:07)
[2019-06-23] MEDS: QUEtiapine TAB* 25 MG PO SCH (12:38)
--- NOTE | 2019-06-23 16:10 | PN ---
Subjective - Subjective Date of Service: 06/23/19 Service Type: 52204 Hosp care 15 min low complexity Subjective: Hilda states he's more tired than usual. He's found in bed, but he is not asleep. He remains taciturn, speaking in short sentences and simply answering questions. he does not offer additional information. His speech is significantly more fluid than it was yesterday and comparing the reports of his previous level of functioning to this one shows progress. When asked about his habit of speaking to himself, he states, "It's probably the schizophrenia." Objective - General Observations Appearance: Disheveled Appears Stated Age: No - older Stature: Overweight Posture: Slumped Eye Contact: Avoidant Behavior/Activity: Slowed, Peculiar - Interaction Observations Attitude Towards Examiner: Cooperative Stated Mood: Euthymic Affect: Blunted Speech Pattern/Tone: Clear, Appropriate, Normal Volume, Delayed Thought Process: Coherent Perception: WNL Thought Content: Preoccupation/Ruminations Hallucination Type: Auditory Delusion Type: Denies - Cognitive Function Orientation: A&O x 4 Level of Consciousness: Awake, Alert, Appropriate Cognition: Impaired Cognition, Impaired Attention/Concentration Insight: WNL Judgment Within Normal Limits: No Ability to Make Reasonable Decisions: Moderately Impaired - Medication Compliance Cooperative with Inpatient Medication Regimen: Yes - Group Participation Participates in Group Activities: No Assessment - Assessment Merits Inpatient Hospitalization: For Immediate Safety Inpatient DSM-V Dx: F20.9 Clinical Impression: 23 y.o. single, white male with a history of schizophrenia and autism spectrum disorder brought to the hospital by his father from [facility] due to progressively disorganized, psychotic behavior and inability to care for himself. He has improved over the past days to become more verbal and more apparently fluid in thought. Plan - Plan Treatment Plan: Name: HILDA MARTINO Birthdate: 1995 [id number] Patient receiving outpatient regimen of lamotrigine, prazosin and quetiapine. Quetiapine dose increased to 50mg in the morning and 400mg in the evening. He remains psychotic and in need of inpatient level treatment. Increase Seroquel dose to 600 mg. Increase Seroquel to 800 mg. Assess for fluidity of speech and thought. Consider discharge Friday. Medications: Current Medications Acetaminophen (Tylenol Tab*) 650 mg PO Q4H PRN PRN Reason: PAIN or TEMP > 101 F Last Admin: 06/23/19 09:06 Dose: 650 mg Al Hydrox/Mg Hydrox/Simethicone (Maalox Plus*) 30 ml PO Q4H PRN PRN Reason: INDIGESTION Lamotrigine (Lamictal Tab(*)) 200 mg PO DAILY [facility] Last Admin: 06/23/19 09:06 Dose: 200 mg Lorazepam (Ativan Tab(*)) 2 mg PO Q6H PRN PRN Reason: AGITATION Last Admin: 06/19/19 15:42 Dose: 2 mg Miscellaneous (Ativan Pyxis Vickers) 1 ea N/A .ATIVAN IV VICKERS PRN PRN Reason: PYXIS VICKERS Multivitamins (Theragran Tab*) 1 tab PO DAILY [facility] Last Admin: 06/23/19 09:07 Dose: 1 tab Prazosin HCl (Minipress 1 Mg Cap) 2 mg PO BEDTIME [facility] Last Admin: 06/22/19 22:46 Dose: 2 mg Quetiapine Fumarate (Seroquel Tab*) 50 mg PO DAILY@1200 [facility] Last Admin: 06/23/19 12:38 Dose: 50 mg Quetiapine Fumarate (Seroquel Tab*) 600 mg PO BEDTIME [facility] Last Admin: 06/22/19 22:46 Dose: 600 mg - Discharge Plan Discharge Plan: Outpatient Follow Up
[2019-06-23] MEDS: LORazepam TAB(*) 1 MG PO PRN (19:46)
[2019-06-23] MEDS: QUEtiapine TAB* 100 MG PO SCH (20:45)
[2019-06-23] MEDS: QUEtiapine TAB* 300 MG PO SCH (20:46)
[2019-06-24] MEDS: Vitamin THERAPEUTIC TAB PO SCH (09:34)
[2019-06-24] MEDS: lamoTRIgine TAB(*) 100 MG PO SCH (09:34)
[2019-06-24] MEDS: LORazepam TAB(*) 1 MG PO PRN (20:16)
[2019-06-24] MEDS: QUEtiapine TAB* 100 MG PO SCH (21:38)
[2019-06-24] MEDS: QUEtiapine TAB* 300 MG PO SCH (21:38)
--- NOTE | 2019-06-25 15:07 | PN ---
Subjective - Subjective Date of Service: 06/25/19 Service Type: 35498 Hosp care 15 min low complexity Subjective: Rivas has been sleeping each time I go to see him, but he has been up and around today getting drinks and eating meals. He continues to carry on conversations by himself. Although he does not seem to be referencing another person outside his body, he is certainly having an animated conversation. He yesterday denied that this was internal stimulation that he was responding to. He stated he was merely mumbling to himself. Objective - General Observations Appearance: Disheveled Appears Stated Age: No Stature: Overweight Posture: Slumped Behavior/Activity: Peculiar - Interaction Observations Attitude Towards Examiner: Cooperative Stated Mood: Dysphoric Affect: Blunted Speech Pattern/Tone: Clear, Normal Volume Thought Process: Coherent, Disorganized Perception: WNL Thought Content: Preoccupation/Ruminations Hallucination Type: Denies, Auditory Delusion Type: Denies - Cognitive Function Orientation: A&O x 4 Level of Consciousness: Awake, Alert Cognition: Impaired Cognition, Impaired Attention/Concentration, Impaired Ability to Abstract Insight: Difficulty Acknowledging Presence of Psyciatric Problems Judgment Within Normal Limits: No Ability to Make Reasonable Decisions: Moderately Impaired - Medication Compliance Cooperative with Inpatient Medication Regimen: Yes - Group Participation Participates in Group Activities: No Assessment - Assessment Merits Inpatient Hospitalization: For Immediate Safety Inpatient DSM-V Dx: F20.9 Clinical Impression: 23 y.o. single, white male with a history of schizophrenia and autism spectrum disorder brought to the hospital by his father from [facility] due to progressively disorganized, psychotic behavior and inability to care for himself. He has improved over the past days to become more verbal and more apparently fluid in thought. Internal conversations continue. Hilda does not find his "mumbling to" himself unusual. Plan - Plan Treatment Plan: Name: HILDA MARTINO Birthdate: 1995 [id number] Patient receiving outpatient regimen of lamotrigine, prazosin and quetiapine. Quetiapine dose increased to 50mg in the morning and 400mg in the evening. He remains psychotic and in need of inpatient level treatment. Increase Seroquel dose to 600 mg. Increase Seroquel to 800 mg. Assess for fluidity of speech and thought. Consider discharge Friday. Continue treatment. Encourage him to be out of bed and participate in some unit programming if possible. This is not his reported baseline. Medications: Current Medications Acetaminophen (Tylenol Tab*) 650 mg PO Q4H PRN PRN Reason: PAIN or TEMP > 101 F Last Admin: 06/23/19 21:20 Dose: 650 mg Al Hydrox/Mg Hydrox/Simethicone (Maalox Plus*) 30 ml PO Q4H PRN PRN Reason: INDIGESTION Lamotrigine (Lamictal Tab(*)) 200 mg PO DAILY [facility] Last Admin: 06/24/19 09:34 Dose: 200 mg Lorazepam (Ativan Tab(*)) 2 mg PO Q6H PRN PRN Reason: AGITATION Last Admin: 06/24/19 20:16 Dose: 2 mg Miscellaneous (Ativan Pyxis Vickers) 1 ea N/A .ATIVAN IV VICKERS PRN PRN Reason: PYXIS VICKERS Multivitamins (Theragran Tab*) 1 tab PO DAILY [facility] Last Admin: 06/24/19 09:34 Dose: 1 tab Nicotine Polacrilex (Nicotine Gum*) 2 mg PO Q2H PRN PRN Reason: CRAVING Prazosin HCl (Minipress 1 Mg Cap) 2 mg PO BEDTIME [facility] Last Admin: 06/24/19 21:38 Dose: 2 mg Quetiapine Fumarate (Seroquel Tab*) 600 mg PO BEDTIME [facility] Last Admin: 06/24/19 21:38 Dose: 600 mg Quetiapine Fumarate (Seroquel Tab*) 200 mg PO BEDTIME [facility] Last Admin: 06/24/19 21:38 Dose: 200 mg - Discharge Plan Discharge Plan: Outpatient Follow Up
[2019-06-25] MEDS: QUEtiapine TAB* 100 MG PO SCH (20:57)
[2019-06-25] MEDS: QUEtiapine TAB* 300 MG PO SCH (20:58)
[2019-06-26] MEDS: lamoTRIgine TAB(*) 100 MG PO SCH ×2 (03:19→10:43)
[2019-06-26] MEDS: Vitamin THERAPEUTIC TAB PO SCH ×2 (03:20→10:44)
[2019-06-26] MEDS: QUEtiapine TAB* 100 MG PO SCH (21:03)
[2019-06-26] MEDS: QUEtiapine TAB* 300 MG PO SCH (21:03)
[2019-06-27] MEDS: lamoTRIgine TAB(*) 100 MG PO SCH (11:15)
[2019-06-27] MEDS: Vitamin THERAPEUTIC TAB PO SCH (11:15)
[2019-06-27] MEDS: QUEtiapine TAB* 100 MG PO SCH (21:30)
[2019-06-27] MEDS: QUEtiapine TAB* 300 MG PO SCH (21:30)
[2019-06-28] MEDS: lamoTRIgine TAB(*) 100 MG PO SCH (09:45)
[2019-06-28] MEDS: Vitamin THERAPEUTIC TAB PO SCH (09:45)
--- NOTE | 2019-06-28 15:27 | PN ---
Subjective - Subjective Date of Service: 06/28/19 Service Type: 64130 Hosp care 15 min low complexity Subjective: I spoke with Rivas briefly. He seemed somewhat irritated that I interrupted the conversation he was having with himself. He has improved from when he began here , when he could not hold a conversation with anyone and was behaving in a disorganized way. The Seroquel 800 has not had enough effect on Rivas, however. His internal conversations are intense and he does not like to be interrupted when having them. He did say that he did not like Risperdal, but he could not elaborate. Objective - General Observations Appearance: Disheveled Appears Stated Age: Yes Stature: Overweight Posture: Slumped Eye Contact: Avoidant Behavior/Activity: Peculiar - Interaction Observations Attitude Towards Examiner: Cooperative Stated Mood: Euthymic Affect: Blunted Speech Pattern/Tone: Clear, Normal Volume Thought Process: Coherent Perception: WNL Thought Content: Preoccupation/Ruminations Hallucination Type: Denies, Auditory Delusion Type: Denies - Cognitive Function Orientation: A&O x 4 Level of Consciousness: Awake, Alert, Appropriate Cognition: Impaired Cognition, Impaired Attention/Concentration Estimated Intelligence: Normal Insight: Difficulty Acknowledging Presence of Psyciatric Problems Judgment Within Normal Limits: No Ability to Make Reasonable Decisions: Serverely Impaired - Medication Compliance Cooperative with Inpatient Medication Regimen: Yes - Group Participation Participates in Group Activities: No Assessment - Assessment Merits Inpatient Hospitalization: For Immediate Safety Inpatient DSM-V Dx: F20.9 Clinical Impression: 23 y.o. single, white male with a history of schizophrenia and autism spectrum disorder brought to the hospital by his father from [facility] due to progressively disorganized, psychotic behavior and inability to care for himself. He has improved over the past days to become more verbal and more apparently fluid in thought. Internal conversations continue. Hilda does not find his "mumbling to" himself unusual. Plan - Plan Treatment Plan: Name: HILDA MARTINO Birthdate: 1995 [id number] Patient receiving outpatient regimen of lamotrigine, prazosin and quetiapine. Quetiapine dose increased to 50mg in the morning and 400mg in the evening. He remains psychotic and in need of inpatient level treatment. Increase Seroquel dose to 600 mg. Increase Seroquel to 800 mg. Assess for fluidity of speech and thought. Consider discharge Friday. Continue treatment. Encourage him to be out of bed and participate in some unit programming if possible. This is not his reported baseline. Begin cross titration of Risperdal and Seroquel. Consider Latuda if Risperdal fails. Continue to try to contact his prescriber, Blank. Continued Medication Management: Different Medication Medications: Current Medications Acetaminophen (Tylenol Tab*) 650 mg PO Q4H PRN PRN Reason: PAIN or TEMP > 101 F Last Admin: 06/23/19 21:20 Dose: 650 mg Al Hydrox/Mg Hydrox/Simethicone (Maalox Plus*) 30 ml PO Q4H PRN PRN Reason: INDIGESTION Lamotrigine (Lamictal Tab(*)) 200 mg PO DAILY [facility] Last Admin: 06/28/19 09:45 Dose: 200 mg Miscellaneous (Ativan Pyxis Vickers) 1 ea N/A .ATIVAN IV VICKERS PRN PRN Reason: PYXIS VICKERS Multivitamins (Theragran Tab*) 1 tab PO DAILY [facility] Last Admin: 06/28/19 09:45 Dose: 1 tab Nicotine Polacrilex (Nicotine Gum*) 2 mg PO Q2H PRN PRN Reason: CRAVING Prazosin HCl (Minipress 1 Mg Cap) 2 mg PO BEDTIME [facility] Last Admin: 06/27/19 21:30 Dose: 2 mg Quetiapine Fumarate (Seroquel Tab*) 600 mg PO BEDTIME [facility] Last Admin: 06/27/19 21:30 Dose: 600 mg Risperidone (Risperdal*) 2 mg PO BEDTIME [facility] - Discharge Plan Discharge Plan: Outpatient Follow Up
[2019-06-28] MEDS: risperiDONE TAB* 2 MG PO SCH (21:35)
[2019-06-28] MEDS: QUEtiapine TAB* 300 MG PO SCH (21:35)
[2019-06-29] MEDS: lamoTRIgine TAB(*) 100 MG PO SCH (12:04)
[2019-06-29] MEDS: Vitamin THERAPEUTIC TAB PO SCH (12:04)
[2019-06-29] MEDS: risperiDONE TAB* 2 MG PO SCH (21:03)
[2019-06-29] MEDS: QUEtiapine TAB* 300 MG PO SCH (21:04)
[2019-06-30] MEDS: Vitamin THERAPEUTIC TAB PO SCH (09:40)
[2019-06-30] MEDS: lamoTRIgine TAB(*) 100 MG PO SCH (09:40)
--- NOTE | 2019-06-30 13:43 | PN ---
Subjective - Subjective Date of Service: 06/30/19 Service Type: [id number] Hosp care 15 min low complexity Subjective: Hilda continues to have animated conversations with himself. He is difficult to interrupt and he seems to have no interest in conversing with anyone other than himself. 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 When a conversation is attempted, he cannot focus and instead continues his mostly internal mumbled conversation. There is collateral obtained by [employer] that it too four weeks for Rivas to clear last time when he was in [facility]. We are pursuing state hospitalization. Objective - General Observations Appearance: Disheveled Appears Stated Age: Yes Stature: Overweight Posture: Slumped Eye Contact: Avoidant Behavior/Activity: Peculiar - Interaction Observations Attitude Towards Examiner: Uncooperative Stated Mood: Irritable Affect: Flat Speech Pattern/Tone: Rambling Thought Process: Disorganized Perception: WNL Thought Content: Preoccupation/Ruminations Hallucination Type: Denies, Auditory Delusion Type: Denies - Cognitive Function Orientation: A&O x 4 Level of Consciousness: Awake, Alert Cognition: Impaired Cognition, Impaired Attention/Concentration Estimated Intelligence: Normal Judgment Within Normal Limits: No Ability to Make Reasonable Decisions: Serverely Impaired - Medication Compliance Cooperative with Inpatient Medication Regimen: Yes - Group Participation Participates in Group Activities: No Assessment - Assessment Merits Inpatient Hospitalization: For Immediate Safety Inpatient DSM-V Dx: F20.9 Clinical Impression: 23 y.o. single, white male with a history of schizophrenia and autism spectrum disorder brought to the hospital by his father from [facility] due to progressively disorganized, psychotic behavior and inability to care for himself. He has improved over the past days to become more verbal and more apparently fluid in thought. Internal conversations continue. Hilda does not find his "mumbling to" himself unusual. Plan - Plan Treatment Plan: Name: HILDA MARTINO Birthdate: 1995 [id number] Patient receiving outpatient regimen of lamotrigine, prazosin and quetiapine. Quetiapine dose increased to 50mg in the morning and 400mg in the evening. He remains psychotic and in need of inpatient level treatment. Increase Seroquel dose to 600 mg. Increase Seroquel to 800 mg. Assess for fluidity of speech and thought. Consider discharge Friday. Continue treatment. Encourage him to be out of bed and participate in some unit programming if possible. This is not his reported baseline. Begin cross titration of Risperdal and Seroquel. Consider Latuda if Risperdal fails. Continue to try to contact his prescriber, Blank. Pursue state hospitalization. Continued Medication Management: Different Medication Medications: Current Medications Acetaminophen (Tylenol Tab*) 650 mg PO Q4H PRN PRN Reason: PAIN or TEMP > 101 F Last Admin: 06/23/19 21:20 Dose: 650 mg Al Hydrox/Mg Hydrox/Simethicone (Maalox Plus*) 30 ml PO Q4H PRN PRN Reason: INDIGESTION Lamotrigine (Lamictal Tab(*)) 200 mg PO DAILY [facility] Last Admin: 06/30/19 09:40 Dose: Not Given Miscellaneous (Ativan Pyxis Vickers) 1 ea N/A .ATIVAN IV VICKERS PRN PRN Reason: PYXIS VICKERS Multivitamins (Theragran Tab*) 1 tab PO DAILY [facility] Last Admin: 06/30/19 09:40 Dose: Not Given Nicotine Polacrilex (Nicotine Gum*) 2 mg PO Q2H PRN PRN Reason: CRAVING Prazosin HCl (Minipress 1 Mg Cap) 2 mg PO BEDTIME [facility] Last Admin: 06/29/19 21:03 Dose: 2 mg Quetiapine Fumarate (Seroquel Tab*) 400 mg PO BEDTIME [facility] Risperidone (Risperdal*) 4 mg PO BEDTIME [facility]
[2019-06-30] MEDS: QUEtiapine TAB* 100 MG PO SCH (21:07)
[2019-06-30] MEDS: risperiDONE TAB* 2 MG PO SCH (21:08)
[2019-07-01] MEDS: Nicotine* 2MG (FRUIT FLAVOR) GUM PO PRN ×2 (10:35→17:34)
[2019-07-01] MEDS: lamoTRIgine TAB(*) 100 MG PO SCH (13:22)
[2019-07-01] MEDS: Vitamin THERAPEUTIC TAB PO SCH (13:22)
[2019-07-01] MEDS: QUEtiapine TAB* 100 MG PO SCH (20:17)
[2019-07-01] MEDS: risperiDONE TAB* 2 MG PO SCH (20:18)
[2019-07-02] MEDS: lamoTRIgine TAB(*) 100 MG PO SCH ×2 (10:48→11:06)
[2019-07-02] MEDS: Vitamin THERAPEUTIC TAB PO SCH (10:48)
[2019-07-02] MEDS ORDERED: LORazepam TAB(*) 1 MG ONE (11:11)
[2019-07-02] MEDS: LORazepam TAB(*) 1 MG PO PRN ×2 (11:12→18:57)
[2019-07-02] MEDS ORDERED: risperiDONE-M * 1 MG TAB.ORADIS ONE (11:12)
[2019-07-02] MEDS: risperiDONE-M * 1 MG TAB.ORADIS PO PRN (11:12)
--- NOTE | 2019-07-02 16:22 | PN ---
Subjective - Subjective Date of Service: 07/02/19 Service Type: [id number] Hosp care 15 min low complexity Subjective: Rivas is found in his room talking animatedly with himself. When I attempt to interrupt him, he screams, "Fuck off!" and then moments later apologizes. He is still not able to engage in conversation, however. Later he is seen eating lunch. He is continuing to talk to himself. Objective - General Observations Appearance: Disheveled Appears Stated Age: Yes Stature: Overweight Posture: Slumped Eye Contact: Avoidant Behavior/Activity: Peculiar, Agitated - Interaction Observations Attitude Towards Examiner: Defensive, Hostile Stated Mood: Dysphoric Affect: Labile Speech Pattern/Tone: Clear, Rambling Thought Process: Disorganized Perception: WNL Thought Content: Preoccupation/Ruminations Hallucination Type: Denies, Auditory Delusion Type: Denies - Cognitive Function Orientation: A&O x 4 Level of Consciousness: Awake, Alert, Appropriate Cognition: Impaired Cognition, Impaired Ability to Abstract Estimated Intelligence: Normal Insight: WNL Judgment Within Normal Limits: No Ability to Make Reasonable Decisions: Serverely Impaired - Medication Compliance Cooperative with Inpatient Medication Regimen: Yes - Group Participation Participates in Group Activities: No Assessment - Assessment Merits Inpatient Hospitalization: For Immediate Safety Inpatient DSM-V Dx: F20.9 Clinical Impression: 23 y.o. single, white male with a history of schizophrenia and autism spectrum disorder brought to the hospital by his father from [facility] due to progressively disorganized, psychotic behavior and inability to care for himself. He has improved over the past days to become more verbal and more apparently fluid in thought. Internal conversations continue. Hilda does not find his "mumbling to" himself unusual. Plan - Plan Treatment Plan: Name: HILDA MARTINO Birthdate: 1995 [id number] Patient receiving outpatient regimen of lamotrigine, prazosin and quetiapine. Quetiapine dose increased to 50mg in the morning and 400mg in the evening. He remains psychotic and in need of inpatient level treatment. Increase Seroquel dose to 600 mg. Increase Seroquel to 800 mg. Assess for fluidity of speech and thought. Consider discharge Friday. Continue treatment. Encourage him to be out of bed and participate in some unit programming if possible. This is not his reported baseline. Begin cross titration of Risperdal and Seroquel. Consider Latuda if Risperdal fails. Continue to try to contact his prescriber, Blank. Pursue state hospitalization. Medications: Current Medications Acetaminophen (Tylenol Tab*) 650 mg PO Q4H PRN PRN Reason: PAIN or TEMP > 101 F Last Admin: 06/23/19 21:20 Dose: 650 mg Al Hydrox/Mg Hydrox/Simethicone (Maalox Plus*) 30 ml PO Q4H PRN PRN Reason: INDIGESTION Lamotrigine (Lamictal Tab(*)) 200 mg PO DAILY [facility] BEDS AT [facility] Last Admin: 07/02/19 11:06 Dose: Not Given Lorazepam (Ativan Tab(*)) 1 mg PO Q6H PRN PRN Reason: anxiety/agitation Last Admin: 07/02/19 11:12 Dose: 1 mg Miscellaneous (Ativan Pyxis Vickers) 1 ea N/A .ATIVAN IV VICKERS PRN PRN Reason: PYXIS VICKERS Multivitamins (Theragran Tab*) 1 tab PO DAILY [facility] Last Admin: 07/02/19 10:48 Dose: Not Given Nicotine Polacrilex (Nicotine Gum*) 2 mg PO Q2H PRN PRN Reason: CRAVING Last Admin: 07/01/19 17:34 Dose: 2 mg Prazosin HCl (Minipress 1 Mg Cap) 2 mg PO BEDTIME [facility] Last Admin: 07/01/19 20:17 Dose: 2 mg Quetiapine Fumarate (Seroquel Tab*) 400 mg PO BEDTIME [facility] Last Admin: 07/01/19 20:17 Dose: 400 mg Risperidone (Risperdal*) 4 mg PO BEDTIME [facility] Last Admin: 07/01/19 20:18 Dose: 4 mg Risperidone (Risperdal-M Tab *) 1 mg PO Q6H PRN; Protocol PRN Reason: AGITATION Last Admin: 07/02/19 11:12 Dose: 1 mg
[2019-07-02] MEDS: risperiDONE TAB* 2 MG PO SCH (20:11)
[2019-07-02] MEDS: QUEtiapine TAB* 100 MG PO SCH (20:11)
[2019-07-02] MEDS: Nicotine* 2MG (FRUIT FLAVOR) GUM PO PRN (20:15)
[2019-07-03] MEDS: risperiDONE-M * 1 MG TAB.ORADIS PO PRN ×2 (00:05→14:30)
[2019-07-03] MEDS: LORazepam TAB(*) 1 MG PO PRN ×2 (00:05→14:31)
[2019-07-03] MEDS: lamoTRIgine TAB(*) 100 MG PO SCH (08:49)
[2019-07-03] MEDS: Vitamin THERAPEUTIC TAB PO SCH (08:49)
[2019-07-03] MEDS: Nicotine* 2MG (FRUIT FLAVOR) GUM PO PRN (09:07)
[2019-07-04] MEDS: QUEtiapine TAB* 100 MG PO SCH ×2 (02:00→22:39)
[2019-07-04] MEDS: risperiDONE TAB* 2 MG PO SCH ×2 (02:00→22:39)
[2019-07-04] MEDS: lamoTRIgine TAB(*) 100 MG PO SCH (08:50)
[2019-07-04] MEDS: Vitamin THERAPEUTIC TAB PO SCH (08:50)
[2019-07-04] MEDS: risperiDONE-M * 1 MG TAB.ORADIS PO PRN (17:53)
[2019-07-04] MEDS: LORazepam TAB(*) 1 MG PO PRN (17:53)
[2019-07-05] MEDS: Vitamin THERAPEUTIC TAB PO SCH (10:34)
[2019-07-05] MEDS: lamoTRIgine TAB(*) 100 MG PO SCH (10:34)
[2019-07-05] MEDS: Nicotine* 2MG (FRUIT FLAVOR) GUM PO PRN (10:48)
[2019-07-05 11:15] LABS: ABS Eosinophils 0.1 10^3/ul (0-0.6); ABS Lymphocytes 1.5 10^3/ul (1.0-4.8); ABS Monocytes 0.3 10^3/ul (0-0.8); ABS Neutrophils 6.2 10^3/ul (1.5-7.7); Eosinophil % 0.6 %; Hematocrit 44 % (42-52); Hemoglobin 14.8 g/dL (14.0-18.0); Lymphocyte % 19.1 %; Mean Corpuscular HGB Conc 34 g/dL (31-36); Mean Corpuscular Hemoglobin 29 pg (27-31); Mean Corpuscular Volume 88 fL (80-94); Mean Platelet Volume 8.6 fL (7.4-10.4); Nucleated Red Blood Cells % 0.1; Platelet Count 259 10^3/uL (150-450); Red Blood Count 5.03 10^6 /uL (4.18-5.48); Red Cell Distribution Width 14 % (10-15); White Blood Count 8.1 10^3/uL (3.5-10.8)
[2019-07-05] MEDS: LORazepam TAB(*) 1 MG PO PRN ×2 (13:01→21:58)
[2019-07-05] MEDS: risperiDONE-M * 1 MG TAB.ORADIS PO PRN (13:02)
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
[2019-07-05] MEDS: CloZAPine TAB* 25 MG TAB PO SCH (21:58)
[2019-07-05] MEDS: risperiDONE TAB* 2 MG PO SCH (21:58)
[2019-07-06] MEDS: Vitamin THERAPEUTIC TAB PO SCH (08:51)
[2019-07-06] MEDS: lamoTRIgine TAB(*) 100 MG PO SCH (08:51)
[2019-07-06] MEDS: CloZAPine TAB* 25 MG TAB PO SCH (21:41)
[2019-07-06] MEDS: risperiDONE TAB* 2 MG PO SCH (21:42)
[2019-07-07] MEDS: lamoTRIgine TAB(*) 100 MG PO SCH (11:44)
[2019-07-07] MEDS: Vitamin THERAPEUTIC TAB PO SCH (11:44)
--- NOTE | 2019-07-07 13:31 | PN ---
Subjective - Subjective Date of Service: 07/07/19 Service Type: [id number] Hosp care 15 min low complexity Subjective: Rivas was found in bed stating that he was having a hard time getting out of bed today. He said it was because he feels like he's been here too long. I did inform him that he is in the process of being transferred to [facility], he was unable to respond to me to say whether he was in favor or not in favor of going. Rivas's father has called to speak to him in the last day or two and Rivas has not responded to the fact that his father was on the phone. Yesterday was evidently a difficult day for Rivas as he did not respond to external conversation and continued his internal conversation only. Today was an improvement as he responded to my questions and asked for supplies to clean up and to note that he was quite hungry. Objective - General Observations Appearance: Disheveled Appears Stated Age: Yes Stature: Overweight Posture: Slumped Eye Contact: Avoidant Behavior/Activity: Peculiar - Interaction Observations Attitude Towards Examiner: Cooperative, Anxious Stated Mood: Dysphoric Affect: Flat Speech Pattern/Tone: Clear, Rambling Thought Process: Coherent, Disorganized Perception: WNL Thought Content: Preoccupation/Ruminations, Obsessional Hallucination Type: Denies, Auditory Delusion Type: Denies - Cognitive Function Orientation: A&O x 4 Level of Consciousness: Awake, Alert, Appropriate Cognition: Impaired Cognition, Impaired Attention/Concentration Estimated Intelligence: Normal Insight: WNL Judgment Within Normal Limits: No Ability to Make Reasonable Decisions: Serverely Impaired - Medication Compliance Cooperative with Inpatient Medication Regimen: Yes - Group Participation Participates in Group Activities: No Assessment - Assessment Merits Inpatient Hospitalization: For Immediate Safety, For Discharge Planning Inpatient DSM-V Dx: F20.9 Clinical Impression: 23 y.o. single, white male with a history of schizophrenia and autism spectrum disorder brought to the hospital by his father from [facility] due to progressively disorganized, psychotic behavior and inability to care for himself. He has improved over the past days to become more verbal and more apparently fluid in thought. Internal conversations continue. Hilda does not find his "mumbling to" himself unusual. Plan - Plan Treatment Plan: Name: HILDA MARTINO Birthdate: 1995 [id number] Patient receiving outpatient regimen of lamotrigine, prazosin and quetiapine. Quetiapine dose increased to 50mg in the morning and 400mg in the evening. He remains psychotic and in need of inpatient level treatment. Increase Seroquel dose to 600 mg. Increase Seroquel to 800 mg. Assess for fluidity of speech and thought. Consider discharge Friday. Continue treatment. Encourage him to be out of bed and participate in some unit programming if possible. This is not his reported baseline. Begin cross titration of Risperdal and Seroquel. Consider Latuda if Risperdal fails. Continue to try to contact his prescriber, Blank. Pursue state hospitalization. State hospitalization continues to be followed up on. Stop Seroquel. Continue Risperdal 4 mg. Start clozapine 25 mg QHS. Increase clozapine to 50 mg at bedtime. Encourage personal hygiene. Medications: Current Medications Acetaminophen (Tylenol Tab*) 650 mg PO Q4H PRN PRN Reason: PAIN or TEMP > 101 F Last Admin: 06/23/19 21:20 Dose: 650 mg Al Hydrox/Mg Hydrox/Simethicone (Maalox Plus*) 30 ml PO Q4H PRN PRN Reason: INDIGESTION Clozapine (Clozapine Tab*) 50 mg PO BEDTIME [facility]ANNA Lamotrigine (Lamictal Tab(*)) 200 mg PO DAILY [facility] Last Admin: 07/07/19 11:44 Dose: 200 mg Lorazepam (Ativan Tab(*)) 1 mg PO Q6H PRN PRN Reason: anxiety/agitation Last Admin: 07/05/19 21:58 Dose: 1 mg Miscellaneous (Ativan Pyxis Vickers) 1 ea N/A .ATIVAN IV VICKERS PRN PRN Reason: PYXIS VICKERS Multivitamins (Theragran Tab*) 1 tab PO DAILY [facility] Last Admin: 07/07/19 11:44 Dose: 1 tab Nicotine Polacrilex (Nicotine Gum*) 2 mg PO Q2H PRN PRN Reason: CRAVING Last Admin: 07/05/19 10:48 Dose: 2 mg Prazosin HCl (Minipress 1 Mg Cap) 2 mg PO BEDTIME [facility] Last Admin: 07/06/19 21:42 Dose: 2 mg Risperidone (Risperdal*) 4 mg PO BEDTIME [facility] Last Admin: 07/06/19 21:42 Dose: 4 mg Risperidone (Risperdal-M Tab *) 1 mg PO Q6H PRN; Protocol PRN Reason: AGITATION Last Admin: 07/05/19 13:02 Dose: 1 mg - Discharge Plan Discharge Plan: Consider Longer Term Tx
[2019-07-07] MEDS ORDERED: Bisacodyl EC TAB* 5 MG PO PRN (15:37)
[2019-07-07] MEDS ORDERED: Polyethylene Glycol 3350* 17 GM PACKET PO PRN (15:37)
[2019-07-07] MEDS: LORazepam TAB(*) 1 MG PO PRN (18:20)
[2019-07-07] MEDS: risperiDONE TAB* 2 MG PO SCH (20:53)
[2019-07-07] MEDS: CloZAPine TAB* 25 MG TAB PO SCH (20:53)
[2019-07-08] MEDS: Vitamin THERAPEUTIC TAB PO SCH (13:03)
[2019-07-08] MEDS: lamoTRIgine TAB(*) 100 MG PO SCH (13:03)
[2019-07-08] MEDS: risperiDONE TAB* 2 MG PO SCH (23:30)
[2019-07-08] MEDS: CloZAPine TAB* 25 MG TAB PO SCH (23:30)
[2019-07-09] MEDS: lamoTRIgine TAB(*) 100 MG PO SCH (08:02)
[2019-07-09] MEDS: Vitamin THERAPEUTIC TAB PO SCH (08:02)
[2019-07-09] MEDS: LORazepam TAB(*) 1 MG PO PRN (08:03)
[2019-07-09 10:29] VITALS: BP 138/65
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
== END 2019-07-09 08:40 | DRG 750 ==
LOC: ED 10:09 → BSU 13:00
PROVIDERS: ADMIT Psychiatry & Neurology Psychiatry; ATTEND Psychiatry & Neurology Psychiatry
DX: F20.9 Schizophrenia, unspecified (principal); Z68.42 Body mass index [BMI] 45.0-49.9, adult; F31.9 Bipolar disorder, unspecified; F43.10 Post-traumatic stress disorder, unspecified; E66.9 Obesity, unspecified; F84.0 Autistic disorder; Z88.0 Allergy status to penicillin; Z88.8 Allergy status to other drugs, medicaments and biological substances
CPT/HCPCS: 36415; 80053; 80061; 80307; 80320; 80329; 81003; 83036; 83605; 85025; 93005; 96374; 99222; 99231; 99232; 99238; 99284; A9270-GY; G0480; J1200; J2060

== ENCOUNTER 2020-01-06 15:00 | Inpatient (IN) ==
[2020-01-06 16:38] LABS: Urine Benzodiazepine Screen None Detected (None Detect); Urine Cannabinoids Screen None Detected (None Detect); Urine Opiates Screen None Detected (None Detect)
[2020-01-06 17:00] LABS: ABS Lymphocytes 1.6 10^3/ul (1.0-4.8); ABS Monocytes 0.4 10^3/ul (0-0.8); Hematocrit 40 % (42-52); Hemoglobin 14.1 g/dL (14.0-18.0); Lymphocyte % 15.8 %; Mean Corpuscular HGB Conc 35 g/dL (31-36); Mean Corpuscular Hemoglobin 31 pg (27-31); Mean Corpuscular Volume 89 fL (80-94); Mean Platelet Volume 8.5 fL (7.4-10.4); Platelet Count 295 10^3/uL (150-450); Red Blood Count 4.55 10^6 /uL (4.18-5.48); Red Cell Distribution Width 14 % (10-15)
[2020-01-06 17:10] LABS: ALT 11 U/L (7-52); AST 14 U/L (13-39); Albumin 4.1 g/dL (3.2-5.2); Albumin/Globulin Ratio 1.3 (1-3); Alkaline Phosphatase 112 U/L (34-104); Anion Gap 9 mmol/L (2-11); BUN/Creatinine Ratio 11.2 (8-20); Blood Urea Nitrogen 11 mg/dL (6-24); CO2 Carbon Dioxide 25 mmol/L (22-32); Chloride 102 mmol/L (101-111); EGFR African American 114.7 (>60); EGFR Non-African American 94.8 (>60); Globulin 3.2 g/dL (2-4); Glucose 141 mg/dL (70-100); Sodium 136 mmol/L (135-145); Total Protein 7.3 g/dL (6.4-8.9)
[2020-01-06 17:34] LABS: Acetaminophen < 15 mcg/mL; Alcohol, S < 10 mg/dL (<10); Salicylate < 2.50 mg/dL (<30)
[2020-01-06 17:49] LABS: TSH Ultra Thyroid Stim Horm 0.85 mcIU/mL (0.34-5.60)
[2020-01-06 19:14] LABS: Urine Appearance Turbid; Urine Bilirubin Negative (Negative); Urine Blood Negative (Negative); Urine Color Amber; Urine Glucose Negative (Negative); Urine Ketones Negative (Negative); Urine Nitrite Negative (Negative); Urine Protein 1+(30 mg/dL) (Negative); Urine Urobilinogen Negative (Negative)
[2020-01-06 19:21] LABS: Urine Bacteria Absent (Absent); Urine Red Blood Cell Trace(0-2/hpf) (Absent); Urine White Blood Cell Absent (Absent)
[2020-01-06] MEDS ORDERED: Al Hydrox/Mg Hydrox/Simet LIQ 30 ML UDC PO PRN (20:04)
[2020-01-06] MEDS ORDERED: Nicotine GUM 2MG FRUIT FLAVOR PO PRN (21:33)
[2020-01-06] MEDS ORDERED: Nicotine PATCH 14 MG/24 HR PATCH TRANSDERM PRN (21:33)
[2020-01-07] MEDS: Vitamin THERAPEUTIC TAB PO SCH (08:56)
[2020-01-07] MEDS ORDERED: Vitamin THERAPEUTIC TAB PO SCH (09:00)
[2020-01-07] MEDS ORDERED: Nicotine GUM 4MG FRUIT FLAVOR PO PRN (15:05)
[2020-01-07] MEDS: Nicotine PATCH 21 MG/24 HR PATCH TRANSDERM SCH (18:01)
[2020-01-08] MEDS: Vitamin THERAPEUTIC TAB PO SCH (07:41)
[2020-01-08] MEDS: Nicotine PATCH 21 MG/24 HR PATCH TRANSDERM SCH ×2 (07:42→12:57)
[2020-01-08 10:11] LABS: HDL Cholesterol 26.4 mg/dL
[2020-01-09] MEDS: Vitamin THERAPEUTIC TAB PO SCH (07:37)
[2020-01-09] MEDS: Nicotine PATCH 21 MG/24 HR PATCH TRANSDERM SCH (07:38)
[2020-01-10 08:02] VITALS: BP 134/89
[2020-01-10] MEDS: Nicotine PATCH 21 MG/24 HR PATCH TRANSDERM SCH (08:16)
[2020-01-10] MEDS: Vitamin THERAPEUTIC TAB PO SCH (08:17)
== END 2020-01-10 11:34 | disposition home or self-care (01) | DRG 750 ==
LOC: ED 15:00 → BSU 17:30
PROVIDERS: ADMIT Psychiatry & Neurology Psychiatry; ATTEND Psychiatry & Neurology Psychiatry

== ENCOUNTER 2020-08-31 22:08 | Inpatient (IN) ==
[2020-08-31 23:27] LABS: Urine Appearance Cloudy; Urine Bilirubin Negative (Negative); Urine Blood Negative (Negative); Urine Color Yellow; Urine Glucose Negative (Negative); Urine Ketones Negative (Negative); Urine Nitrite Negative (Negative); Urine Protein Negative (Negative); Urine Specific Gravity 1.017 (1.002-1.030); Urine Urobilinogen Negative (Negative)
[2020-08-31 23:27] LABS: ABS Lymphocytes 3.1 10^3/ul (1.0-4.8); ABS Monocytes 0.7 10^3/ul (0-0.8); ABS Neutrophils 6.7 10^3/ul (1.5-7.7); Hematocrit 40 % (42-52); Lymphocyte % 29.3 %; Mean Corpuscular HGB Conc 35 g/dL (31-36); Mean Corpuscular Hemoglobin 31 pg (27-31); Mean Corpuscular Volume 88 fL (80-94); Mean Platelet Volume 8.7 fL (7.4-10.4); Nucleated Red Blood Cells % 0.1; Platelet Count 272 10^3/uL (150-450); Red Blood Count 4.54 10^6 /uL (4.18-5.48); Red Cell Distribution Width 13 % (10-15); White Blood Count 10.6 10^3/uL (3.5-10.8)
[2020-08-31 23:35] LABS: ALT 6 U/L (7-52); AST 14 U/L (13-39); Albumin/Globulin Ratio 1.3 (1-3); Alkaline Phosphatase 118 U/L (35-149); Anion Gap 9 mmol/L (2-11); Blood Urea Nitrogen 12 mg/dL (6-24); CO2 Carbon Dioxide 25 mmol/L (22-32); Calcium 9.4 mg/dL (8.6-10.3); Chloride 101 mmol/L (101-111); EGFR African American 101.6 (>60); Glucose 101 mg/dL (70-100); Potassium 3.7 mmol/L (3.5-5.0); Sodium 135 mmol/L (135-145)
[2020-08-31 23:38] LABS: Urine Benzodiazepine Screen None Detected (None Detect); Urine Cannabinoids Screen None Detected (None Detect); Urine Opiates Screen None Detected (None Detect)
[2020-08-31 23:40] LABS: Alcohol, S < 10 mg/dL (<10); Salicylate < 2.50 mg/dL (<30)
[2020-08-31 23:53] LABS: Acetaminophen < 15 mcg/mL
[2020-09-01] MEDS ORDERED: Al Hydrox/Mg Hydrox/Simet LIQ 30 ML UDC PO PRN (10:08)
[2020-09-01] MEDS ORDERED: AUTO INJECTOR IM PRN (10:09)
[2020-09-01] MEDS ORDERED: EPINEPHRINE 0.3 MG/0.3 ML IM PRN (10:09)
[2020-09-01] MEDS ORDERED: Paliperidone SUSTENNA 234 MG/1.5 ML IM ONE (15:48)
[2020-09-01] MEDS ORDERED: COVID-19 VACCINE, AD26(JANSSEN)/PF 0.5 ML IM ONE (16:00)
[2020-09-01] MEDS ORDERED: Nicotine GUM 4MG FRUIT FLAVOR PO PRN (16:15)
[2020-09-02] MEDS: Nicotine PATCH 21 MG/24 HR PATCH TRANSDERM SCH (08:32)
[2020-09-02] MEDS: CMCS: Lamotrigine XR 200 mg TAB (NF) PO SCH (08:32)
[2020-09-03 08:05] LABS: HDL Cholesterol 27.1 mg/dL
[2020-09-03] MEDS: Nicotine PATCH 21 MG/24 HR PATCH TRANSDERM SCH (08:26)
[2020-09-03] MEDS: CMCS: Lamotrigine XR 200 mg TAB (NF) PO SCH (08:27)
[2020-09-04] MEDS: CMCS: Lamotrigine XR 200 mg TAB (NF) PO SCH (08:16)
[2020-09-04 08:25] VITALS: BP 105/69
[2020-09-04] MEDS: Nicotine PATCH 21 MG/24 HR PATCH TRANSDERM SCH (08:56)
[2020-09-04] MEDS ORDERED: Paliperidone SUSTENNA 156 MG/1 ML IM ONE (09:00)
== END 2020-09-04 11:35 | disposition home or self-care (01) | DRG 750 ==
LOC: ED 22:08 → BSU 09-01 13:22
PROVIDERS: ADMIT Psychiatry & Neurology Psychiatry; ATTEND Psychiatry & Neurology Psychiatry